=== PATIENT | female | born 1975 ===

== ENCOUNTER 2024-08-13 10:23 | Outpatient (AMB) | payer OTHER, SELFPAY ==
--- NOTE | 2024-08-13 10:36 | A.OFFVIS_ITS ---
VS Expanded 08/13/24 10:37 08/25/24 11:09 Height 5 ft 3 in 5 ft 3 in Weight 162 lb 4.163 oz 162 lb BMI 28.7 28.7 Intake Visit Reasons: Overweight Nutrition Presentation Details: PT presents for MNT for obesity Pt reports gaining about 20 lbs in a year physical activity: has resumed walking daily for 45 minutes (had stopped d/t broken toe) Reports taking a daily mvi and vitamin d magnesium at night ( daily on own ) Working on fasting the 12:1 protein shake snack : mixed nuts dinner: meal following healthy plate method constipation/diarrhea: denies JLJ-Tldzoch-Tz.Jeor Equation Height: 5 ft 3 in Weight: 162 lb Resting Metabolic Rate: 1346.89 Calculated Activity Level: Sedentary Calories Needed to Maintain Weight: 1616.27 Diagnosis Nutrition problem #1: unintended weight gain As related to (etiology) #1: physical inactivity As evidenced by (sign/symptom) #1: high BMI (28.7 (08/26)) Assessment & Plan Assessment & Plan (1) Overweight (BMI 25.0-29.9): Comment: reports 20 lbs wt gain over a yrs time Code(s): E66.3 - Overweight Category: Medical Plan Wt: 74 Kg (08/26 ) Est kcal needs as per MSJ: 1600 (40% carb, 30% protein/fat) Est fluid needs as per 25-30 ml/d: 2200 Est prot per day as per 1 g/kg bw: 74 Recommend fiber intake : 8-10 g per day and gradually increase to 25-28 g per day for women and 35-38 g for men or as tolerated Recommend sodium intake per day : less than 2300 mg Educated patient on: ( R = reviewed V = verbalizes understanding N/R = needs review N/A = not applicable * Food sources of carbohydrate, adequate serving sizes and its role in various health conditions: R * Differences between complex carbohydrates a simple carbohydrates, role of fiber in diet: R * Lean protein sources of foods: R * Differences between types of fats and role in diet (mono on saturated fat fatty acids, saturated fatty acids, trans fats): R V N/R * Food sources of sodium in salt and healthy modifications for heart health in kidney health: R V R/V * Vitamins and minerals: R V N/R * Healthy plate method concept: R V * Physical activity: Benefits a precaution: R V * Patient Instructions: Practice mindful eating reduce total carb to 30-45g at meal following healthy plate method keep hydrated by hiaving water with meals/snacks Coding Level of Care Code Nutr Indiv Intake (58574) Diagnoses Overweight (BMI 25.0-29.9) E66.3 Time Spent (min) 30
[2024-08-13 10:37] VITALS: BMI 28.7
--- OUTSIDE RECORDS SUMMARY | 2024-08-13 12:04 | XMS_ITS | Clinical Summary ---
Author Organization [facility] [address] [facility] Building Address [address] [place] [address] Phone Care Team Providers Care Corporate Coordinator Name Role Phone Devonte Dickson MD Primary Care Provider [phone] Allergies Active Allergy Reactions Criticality Noted Date Comments Azithromycin Swelling High 12/15/2015 angioedema Latex 05/19/2021 Medications Ventolin HFA 90 mcg/actuation inhaler INHALE 2 PUFFS INTO THE LUNGS EVERY 6 HOURS NEEDED FOR COUGH OR WHEEZING. 11/14/2023 Active loratadine (CLARITIN) 10 mg tablet Take 1 tablet (10 mg total) by mouth 1 (one) time each day. 10/23/2023 Active cyclobenzaprine (FLEXERIL) 10 mg tablet Take 1 tablet (10 mg total) by mouth at bedtime as needed for muscle spasms. 30 tablet 2 04/14/2024 5 Active diclofenac (VOLTAREN) 75 mg EC tablet TAKE 1 TABLET BY MOUTH TWICE A DAY NEEDED FOR PAIN DO NOT CRUSH, CHEW, OR SPLIT 60 tablet 05/19/2024 Active ergocalciferol (VITAMIN D-2) 1,250 mcg (50,000 unit) capsule Take 1 capsule (50,000 Units total) by mouth 1 (one) time per week. 12 capsule 05/25/2024 5 Active oxyBUTYnin XL (DITROPAN-XL) 5 mg 24 hr tablet Take 1 tablet (5 mg total) by mouth 1 (one) time each day. Do not crush, chew, or split. 30 tablet 5 07/30/2024 Active estradiol-noret hindrone (ACTIVELLA) 1-0.5 mg per tablet Take 1 tablet by mouth 1 (one) time each day. 30 each 07/30/2024 Active Active Problems Problem Noted Date Diagnosed Date Benign breast cyst in female, left 05/24/2022 Overview (04/14/2024): Noted on oustside mammo 2020 - a 0.5cm cyst noted@ 7-8 oclock region Solitary lung nodule 01/14/2020 Overview (04/14/2024): 3 mm left lower lung; incidental. No further imaging [facility] cancer prediction equation: risk % 0.04 Vitamin D deficiency 10/14/2019 Snoring 04/14/2017 Overview (04/14/2024): 04/2017 Home Sleep Study did not reveal sleep apnea. Mild snoring. 05/2020 Diagnostic polysomnogram did not reveal HUNG or nocturnal hypoxia. No snoring. 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 No evidence of neoplasm on imaging CT neck/chest. F/u June with repeat laryngoscopy (Dr. Hernandez. 1 cm mucocele ENT - watchful monitoring (David) 2016. Allergic rhinitis 01/11/2016 Mild intermittent asthma without complication Encounters Date Type Department Care Team Description 07/30/2024 9:45 AM EDT Office Visit Obstetrics & Gynecology [address] [phone] Sujatha Mckee CNM Encounter for well woman exam with routine gynecological exam (Primary Dx); Screening breast examination; Screening for cervical cancer; Beth-menopausal 07/03/2024 9:30 AM EDT Treatment [address] [phone] Jaimie Polo, PT Chronic bilateral low back pain with bilateral sciatica (Primary Dx) 06/19/2024 9:00 AM EDT Treatment [address] [phone] Jaimie Polo, PT Chronic bilateral low back pain with bilateral sciatica (Primary Dx) 06/12/2024 10:30 AM EDT Treatment [address] [phone] Jaimie Polo, PT Chronic bilateral low back pain with bilateral sciatica (Primary Dx) 05/22/2024 1:30 PM EDT Office Visit [facility] - [facility] [address] [place] [phone] Anderson Mcneill PA Health maintenance examination (Primary Dx); Overweight; Colon cancer screening; Hair loss; Vitamin D deficiency 05/22/2024 10:00 AM EDT Evaluation [address] [phone] Jaimie Polo, PT Chronic bilateral low back pain with bilateral sciatica from Last 3 Months Immunizations Name Administration Dates Next Due Tdap Tetanus diptheria acell ular pertussis (Boostrix; Adacel) 7yo and older 12/11/2018 Surgical History Surgery Date Site/Laterality Comments OTHER SURGICAL HISTORY PROCEDURE: DENIES PREVIOUS SURGERY Medical History Medical History Date Comments Allergy-induced asthma DX:Allerg y-induced asthma Globus sensation 03/16/2016 DX:Globus sensa tion; COMMENT: 1 cm mucocele ENT - watchful monitoring (David) 2016. Solitary lung nodule 01/14/2020 DX:Solitary lung nodule; COMMENT: 3 mm left lower lung; incidental. No further imaging [facility] cancer prediction equation: risk % 0.04 Benign breast cyst in female, left 05/24/2022 Noted on oustside mammo 2020 - a 0.5cm cyst noted@ 7-8 oclock region Family History Medical History Relation Name Comments No Known Problems Brother Hypertension Father Thyroid CA, HUNG Multiple myeloma Father Other: Thyroid Ca Father Coronary artery disease Maternal Grandfather DM II Lymphoma Maternal Grandmother Breast cancer Mother right breast Colon cancer Mother's side great GM great grandmot her No Known Problems Sister Relation Name Status Comments Brother Alive 1 Father Maternal Grandfather Maternal Grandmother Mother Alive Mother's side great GM Sister Alive 1 Social History Tobacco Use Types Packs/Day Years Used Date Smoking Tobacco: Never Smokeless Tobacco: Never Tobacco Cessation:Counseling Given: Not Answered Alcohol Use Standard Drinks/Week Comments No 0 (1 standard drink = 0.6 oz pur e alcohol) Housing Instability Answer Date Recorde d Are you worried that in the next 2 months you may not have stable housing? No 05/22/2024 Food Access & Nutrition Answer Date Rec orded Do you have access to a vari ety of food including fruits and vegetables? Yes 05/22/2024 Access to Healthcare Answer Date Record ed Within the last 3 months, keri abad many times did you visit the emergency department for your medical care? 0 05/22/2024 Health Literacy Answer Date Recorded How often do you need to hav e someone help you when you read instructions, pamphlets, or other written material from your doctor or pharmacy? Never 05/22/2024 Caregiver: How often do you need to have someone help you when you read instructions, pamphlets, or other written material from your doctor or pharmacy? Not on file 05/22/2024 Financial Risk Answer Date Recorded How hard is it for you to pa y for the very basics like food, housing, medical care, and air conditioning / heating? Not very hard 05/22/2024 Transportation Answer Date Recorded Has the lack of transportati on kept you from meetings, work, or from getting things needed for daily living? No Has the lack of transportati on kept you from medical appointments or from getting medications? No 05/22/2024 Social Isolation Answer Date Recorded How often do you feel lonely or isolated from th ose around you? Never 05/22/2024 Food Risk Answer Date Recorded Within the past 12 months we worried whether our food would run out before we got money to buy more. Never true 05/22/2024 Within the past 12 months th e food we bought just didn't last and we didn't have money to get more. Never true 05/22/2024 Dependent Care Answer Date Recorded Do you need help finding or paying for care for your loved ones. For example, child development associate teacher or elderly care for an older adult? No 05/22/2024 Education Answer Date Recorded Do you think completing more education or training, like finishing a GED, going to college, or learning a trade, would be helpful for you? No 05/22/2024 Employment and Income Answer Date Recor ded During the last four weeks, have you been actively looking for work? No 05/22/2024 Living Situation Answer Date Recorded What is your living situation? 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 Not on file Not on file N ot on file Obstetrics History Para Term AB IAB SAB Ectopic Multiple Livin g Live Births 1 1 1 Date Outcome GA Total Labor Labor/2nd/3rd Weight Sex Type Anes PTL Milena A1 A5 Name Clin 2008 40w 0d M Vag-S pont Living Last Filed Vital Signs Vital Sign Reading Time Taken Comments Blood Pressure 103/63 07/30/2024 9:50 AM EDT Pulse 80 07/30/2024 9:50 AM EDT Temperature - - Respiratory Rate 16 05/22/2024 1:06 PM EDT Oxygen Saturation - - Inhaled Oxygen Concentration - - Weight 76.2 kg (168 lb 1.6 oz) 07/30/2024 9:50 A M EDT Height 160 cm (5' 3 ) 07/30/2024 9:50 AM EDT Body Mass Index 29.78 07/30/2024 9:50 AM EDT Plan of Treatment Upcoming Encounters Date Type Department Care Team (Late st Contact Info) Description 08/21/2024 1:00 PM EDT [facility]ment [facility] [address] [phone] 09/22/2024 10:15 AM EDT Appointment Xray [address] [place] [address] Health Maintenance Due Date Last Done Comments COVID-19 Vaccine (#1) 1982 Hepatitis B Vaccines (1 of 3 - 19+ 3-dose series) 1996 Pneumococcal Vaccine: Pediatrics (0 to 5 Years) and At-Risk Patients (6 to 64 Years) (1 of 2 - PCV) 1996 Colorectal Cancer Screening: Colonoscopy 02/10/2022 Influenza Vaccine (Season Ended) 2024 Depression Screening 05/22/2025 05/22/2024 Social Influencers of Health Screening 05/22/2025 05/22/2024 Breast Cancer Screening 07/04/2025 07/05/19, 07/05/2023, 06/27/2022, Additional history exists Cholesterol Screening (Lipid Panel) 08/01/2028 08/02/2023, 08/02/2023 DTaP,Tdap,and Td Vaccines (2 - Td or Tdap) 12/11/2028 12/11/2018 Cervical Cancer Screening: HPV 07/30/2029 07/30/2024 HIB Vaccines Aged Out No longer eligi ble based on patient's age to complete this topic HIV Screening Discontinued HPV Vaccines Aged Out No longer eligi ble based on patient's age to complete this topic Hepatitis A Vaccines Aged Out No long er eligible based on patient's age to complete this topic Hepatitis C Screening Discontinued IPV Vaccines Aged Out No longer eligi ble based on patient's age to complete this topic MMR Vaccines Aged Out No longer eligi ble based on patient's age to complete this topic Meningococcal ACWY Vaccine Aged Out N o longer eligible based on patient's age to complete this topic Meningococcal B Vaccine Aged Out No l onger eligible based on patient's age to complete this topic RSV Immunization Patients Under 20 months Aged Out No longer eligible based on patient's age to complete this topic Varicella Vaccines Aged Out No longer eligible based on patient's age to complete this topic Procedures Procedure Name Priority Date/Time Associated Diagnosis Comments PAP SMEAR Routine 07/30/2024 10:05 AM EDT Encounter for well woman exam with routine gynecological exam Screening for cervical cancer HPV WITH REFLEX GENOTYPE Routine 07/30/2024 10:05 AM EDT Encounter for well woman exam with routine gynecological exam Screening for cervical cancer VITAMIN D 25 HYDROXY Routine 05/22/2024 1:33 PM EDT Health maintenance examination THYROID STIMULATING HORMONE WITH REFLEX TO FREE T4 AND FREE T3 Routine 05/22/2024 1:33 PM EDT Health maintenance examination VITAMIN B12 AND FOLATE Routine 05/22/2024 1:33 PM EDT Health maintenance examination IRON AND TIBC Routine 05/22/2024 1:33 PM EDT Health maintenance examination LIPID PANEL Routine 08/02/2023 SCREENING MAMMOGRAPHY BI 2-VIEW BREAST INC CAD Routine 07/05/2023 11:15 AM EDT Family history of malignant neoplasm of breast from Last 3 Months or Most Recently Relevant to Health Maintenance Results * HPV with reflex genotype (07/30/2024 10:05 AM EDT) HPV Negative Negative LAB MICROBIOLOGY METHOD 07/31/2024 4:52 PM EDT [facility] Brushing/Spatula Cervix uteri structure / Unknown 07/30/2024 10:05 AM EDT 07/31/2024 6:19 AM EDT us Sujatha RUBIO LAB MOLECULAR DIAGNOSTICS ORD ERABLES Final Result [facility] [address] [place] [address], * Pap smear (07/30/2024 10:05 AM EDT) Interpretation Negative for intraepithelial lesion or malignancy 08/03/2024 2:02 PM EDT [facility] General Categorization Negative 08/03/2024 2:02 PM EDT [facility] Other Findings Shift in eva suggestive of bacterial vaginosis 08/03/2024 2:02 PM EDT [facility] LMP 07/11/2024 08/03/2024 2:02 PM EDT [facility] Specimen Adequacy Satisfactory for evaluation, endocervical/clinton sformation zone component present 08/03/2024 2:02 PM EDT [facility] Pap Methodology Liquid Based Pap Test 08/03/2024 2:02 PM EDT [facility] Disclaimer Note: This pap test could not be imaged utilizing the [employer] System and required a manual review. The Pap test is a screening test which carries an inherent false negative rate. These test results should be correlated with the patient's clinical findings and history. This Pap test was processed using an automated screening system. Technical cytopathology services provided by [facility], at [address] [place] [id number] (CLIA # [id number]/Mary Farmer MD, Ornamental Metal Worker Helper.) 08/03/2024 2:02 PM EDT [facility] Console Pap Interpretation Reported 08/03/2024 2:02 PM EDT [facility] Brushing/Spatula Cervix uteri structure / Unknown 07/30/2024 10:05 AM EDT 07/31/2024 6:19 AM EDT Sujatha RUBIO LAB CYTOLOGY ORDERABLES Final Result [facility] [address] [place] [address], * Thyroid stimulating hormone with reflex to free t4 and free t3 (05/22/2024 1:33 PM EDT) TSH 1.93 0.40 - 4.00 mcIU/mL LAB CHEMISTRY METHOD 05/22/2024 4:51 PM EDT [facility] Blood Venous blood specimen / Unknown Venipuncture / Unknown 05/22/2024 1:33 PM EDT 05/22/2024 1:33 PM EDT Anderson KEE LAB BLOOD ORDERABLES Fi nal Result Performing Organization Address [facility] [[email or web address]] Co de Phone Number [facility] [address] [place] [address], [place] [phone] * (ABNORMAL) Vitamin B12 and folate (05/22/2024 1:33 PM EDT) [facility] Vitamin B-12 376 250 - 900 pcg/mL LAB CHEMISTRY METHOD 05/22/2024 4:16 PM EDT [facility] Folate >20.0(H) 2.8 - 17.0 ng/ml LAB CHEMISTRY METHOD 05/22/2024 4:16 PM EDT [facility] Blood Venous blood specimen / Unknown Venipuncture / Unknown 05/22/2024 1:33 PM EDT 05/22/2024 1:33 PM EDT Anderson KEE LAB BLOOD ORDERABLES Fi nal Result Performing Organization Address [facility]/ZIP Co de Phone Number [facility] [address] [place] [address], [place] [phone] * Iron and TIBC (05/22/2024 1:33 PM EDT) [facility] Iron 53 40 - 150 mcg/dL LAB CHEMISTRY METHOD 05/22/2024 3:54 PM EDT [facility] TIBC 347 250 - 450 mcg/dL LAB CHEMISTRY METHOD 05/22/2024 3:54 PM EDT [facility] Iron Saturation 15 15 - 50 % LAB CHEMISTRY METHOD 05/22/2024 3:54 PM EDT [facility] Blood Venous blood specimen / Unknown Venipuncture / Unknown 05/22/2024 1:33 PM EDT 05/22/2024 1:33 PM EDT Anderson KEE LAB BLOOD ORDERABLES Fi nal Result Performing Organization Address [facility] de Phone Number [facility] [address] [place] [address], [place] [phone] * (ABNORMAL) Vitamin D 25 hydroxy (05/22/2024 1:33 PM EDT) [facility] Vit D, 25-Hydroxy 19.0(L) 30.0 - 80.0 ng/mL LAB CHEMISTRY METHOD 05/22/2024 4:51 PM EDT [facility] Blood Venous blood specimen / Unknown Venipuncture / Unknown 05/22/2024 1:33 PM EDT 05/22/2024 1:33 PM EDT Anderson KEE LAB BLOOD ORDERABLES Fi nal Result Performing Organization Address [facility] Phone Number [facility] [address] [place] [address], [place] [phone] * Lipid panel (08/02/2023) [facility] LDL/HDL Ratio 2 Triglycerides 92 mg/dL Cholesterol 179 mg/dL HDL 80 mg/dL LDL Cholesterol 81 mg/dL Blood Venous blood specimen / Unknown us Historical Provider LAB BLOOD ORDERABLES Cecile l Result * SCREENING MAMMOGRAPHY BI 2-VIEW BREAST INC CAD (07/05/2023 11:15 AM EDT) Anatomical Region Laterality Modality Radiographic Kelly ging 06/27/2022 10:5 0 AM EDT Narrative 07/05/2023 5:28 PM EDT This is a summary report. The complete report is available in the patient's medical record. If you cannot access the medical record, please contact the sending organization for a detailed fax or copy. Exam: Screening mammogram Findings: Digital bilateral full-field screening mammography is performed with tomosynthesis and interpreted with the aid of computer-aided detection. ??Comparison is made with 06/27/2022 and as far back as 01/22/2019. Breast parenchyma is composed of scattered fibroglandular densities. ??No new suspicious mass, architectural distortion, or suspicious calcifications. Impression: No mammographic evidence of malignancy. BI-RADS 1 - negative Procedure Note Stephanie Buitrago MD - 10/21/2023 This is a summary report. The complete report is available in thepatient's medical record. If you cannot access the medical record, pleasecontact the sending organization for a detailed fax or copy. Exam: Screening mammogram Findings: Digital bilateral full-field screening mammography is performedwith tomosynthesis and interpreted with the aid of computer-aideddetection. Comparison is made with 06/27/2022 and as far back as103/24/2018. Breast parenchyma is composed of scattered fibroglandular densities. Nonew suspicious mass, architectural distortion, or suspiciouscalcifications. Impression: No mammographic evidence of malignancy. BI-RADS 1 - negative Sujatha RUBIO IMG XR PROCEDURES Final Resul t from Last 3 Months or Most Recently Relevant to Health Maintenance Insurance [facility] Care Teams Corporate Coordinator Relationship Specialty Start Date End Date Devonte Dickson MD [address] [place] [address] PCP - General Internal Medicine 11/17/20
[2024-08-25 20:07] VITALS: BMI 28.7
== END 2024-08-13 11:04 | disposition home or self-care (01) ==
LOC: HO.ENCR 10:23
PROVIDERS: PCP Internal Medicine; Visit Provider Dietitian, Registered
DX: E66.3 Overweight (principal)

== ENCOUNTER → 2024-08-13 10:23 | Outpatient (BNVA) | payer OTHER, SELFPAY | PROVIDERS: PCP Internal Medicine; Visit Provider Dietitian, Registered | DX: Z71.3 Dietary counseling and surveillance (principal); E66.3 Overweight; Z68.25 Body mass index [BMI] 25.0-25.9, adult | CPT/HCPCS: 97802 ==